=== PATIENT | female | born 1980 | race Caucasian/White ===

== ENCOUNTER 2016-10-28 11:18 | Emergency (ER) | payer OTHER ==
--- NOTE | 2016-10-28 13:21 | REP ---
CHEST, TWO VIEWS: COMPARISON: 11/09/2014. There is no evidence of acute infiltrate. No pleural effusion is seen. The heart is normal in size. The mediastinal silhouette is unremarkable. The visualized osseous structures are intact. IMPRESSION: No acute pulmonary disease. Signed by Sen Granados MD 10/28/2016 01:31 P
--- NOTE | 2016-10-28 13:36 | EDDOCDS ---
Nurse's Notes [facility] Name: Lauren Collins Age: 36 yrs Sex: Female : 1980 Arrival Date: 10/28/2016 Time: 11:18 Bed PR Private MD: NO PRIMARY PHYSICIAN, . Diagnosis: Cough Presentation: 10/28 11:24 Presenting complaint: Patient states: cough and pain when hurts to cough for a month. [facility] Adult Sepsis Screening: The patient does not have new or worsening altered mentation. Patient's respiratory rate is less than 22. Systolic blood pressure is greater than 100. Patient has a qSOFA score of 0- Negative Sepsis Screen. Suicide/Homicide risk assessment- the patient denies having any suicidal and/or homicidal ideations and does not present with any other emotional, behavioral or mental health complaints. 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 Transition of care: patient was not received from another setting of care. 11:24 Acuity: JOVANY Level 4 srm 11:24 Method Of Arrival: Walkin/Carried/Asstd [facility] Triage Assessment: 11:25 General: Appears in no apparent distress, Behavior is appropriate for age, cooperative. srm 11:25 Pain: Pain currently is 5 out of 10 on a pain scale. HIV screening NA for this visit srm Offered previously. 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 none - PMHx: none; - PSHx: ganglion cyst removed from left wrist; Tubal ligation; E-sure insertion; - Social history: Smoking status: Patient uses tobacco products, current every day smoker. No barriers to communication noted, The patient speaks fluent Indonesian, Speaks appropriately for age. - Family history: Not pertinent. - : The pt / caregiver states he / she is not on anticoagulants. Home medication list is obtained from the patient. - Exposure Risk Screening:: None identified. Screenin:32 Screening information is obtained from the patient. Fall risk: No risks identified[facility] Assistance ADL's: requires no assistance with activities of daily living. Abuse/DV Screen: The patient / caregiver reports he/she is: not in a situation that causes fear, pain or injury. Nutritional screening: No deficits noted. Advance Directives: There is no active DNR order. home support is adequate. Assessment: 13:32 General: Appears in no apparent distress, comfortable, Behavior is appropriate for age, cjh cooperative. General: first contact with patient who denies further needs. Reviewed discharge instructions, encouraged and answered questions, declines offers of additional assistance with discharge. Neurological: Level of Consciousness is awake, alert, Oriented to person, place, time. Respiratory: Airway is patent Respiratory effort is even, unlabored, Respiratory pattern is regular, symmetrical. Derm: Skin is pink, warm & dry. Vital Signs: 11:19 BP 157 / 74; Pulse 82; Resp 18; Temp 97.6(O); Pulse Ox 100% on R/A; Weight 88.9 kg (R); elp Height 5 ft. 3 in. (160.02 cm) (R); Pain 5/10; 13:23 BP 125 / 75; Pulse 65; Resp 18; Temp 96.9(O); Pulse Ox 97% on R/A; Pain 6/10; jb5 11:19 Body Mass Index 34.72 (88.90 kg, 160.02 cm) [facility] Vitals: 11:19 Log In Time: October 28, 2016 at 11:18. [facility] ED Course: 11:19 Patient visited by America Hayden PCA. elp 11:19 NO PRIMARY PHYSICIAN, . is Private Physician. elp 11:19 Patient moved to Waiting elp 11:21 Patient visited by America Hayden PCA. elp 11:21 Patient moved to Pre RCE elp 11:25 Triage Initiated srm 11:26 Patient moved to Triage 3 srm 11:50 [facility] dt4 11:50 Boni Moura MD is Attending Physician. dt4 11:50 Patient visited by Clarisse Luu PA-C. dt4 11:58 Patient moved to TR7 srm 12:00 Patient moved to TR2 ml6 12:09 [facility] Payment Agreement was scanned into [employer] and attached to record. mm15 13:02 [facility] is Referral Physician. dt4 13:14 Patient moved to PR1 / 25 pml 13:23 Patient visited by Kimmy Collins PCA. jb5 13:24 Patient visited by Collins, Kimmy, CLINICAL STAFF RN. jb5 13:32 The patient / caregiver is instructed regarding the plan of care and ED course. [facility] 13:32 No IV's were initiated during this patient's visit. No procedures done that require [facility] assistance. Order Results: There are currently no results for this order. Outcome: 13:03 Discharge ordered by Provider. dt4 13:32 Discharge Assessment: Patient awake, alert and oriented x 3. No cognitive and/or [facility] functional deficits noted. Patient verbalized understanding of disposition instructions. patient administered narcotics - no. The following High Risk Discharge criteria are identified: None. Discharged to home ambulatory. Condition: good Condition: stable Condition: improved. Discharge instructions given to patient, Instructed on discharge instructions, follow up and referral plans. medication usage, no driving heavy equipment, no drinking with medication, Demonstrated understanding of Prescriptions given X 2. No special radiology studies were completed. Property :Personal belongings accompany Pt. 13:35 Patient left the ED. [facility] Signatures: Phyllis Roblero, RN CRISELDA [facility] Kimmy Collins, CLINICAL STAFF RN CLINICAL STAFF RN jb5 Moses Feng RN RN ml6 Yelena Taylor RN RN [facility] Bia Covington RN RN [facility] Dimas Beckman mm15 America Hayden, CLINICAL STAFF RN CLINICAL STAFF RN amritap Clarisse Luu PA-C PA-C dt4 MTDD
--- NOTE | 2016-10-28 13:36 | EDDOCDS ---
Physician Documentation [facility] Name: Lauren Collins Age: 36 yrs Sex: Female : 1980 Arrival Date: 10/28/2016 Time: 11:18 Bed Private MD: NO PRIMARY PHYSICIAN, . Disposition: 10/28/16 13:03 Discharged to Home/Self Care. Impression: Cough. - Condition is Stable. - Discharge Instructions: Cough, Adult. - Prescriptions for Iophen C- NR 10-100 mg/5 mL Oral liquid - take 10 milliliter by ORAL route at bedtime As needed; 120 milliliter. benzonatate 200 mg Oral Capsule - take 1 capsule by ORAL route 3 times per day As needed; 30 capsule. - Medication Reconciliation, Local Pharmacy Hours form. - Follow up: Emergency Department; When: As needed; Reason: Worsening of conditions. Follow [facility]: [facility]; When: Call to arrange an appointment; Reason: Recheck today's complaints, Continuance of care, To establish care. - Problem is new. - Symptoms are unchanged. Historical: - Allergies: Erythromycin (Hives); Latex (Rash); Pertussis Vaccines (Unknown); - Home Meds: 1. none - PMHx: none; - PSHx: ganglion cyst removed from left wrist; Tubal ligation; E-sure insertion; - Social history: Smoking status: Patient uses tobacco products, current every day smoker. No barriers to communication noted, The patient speaks fluent Armenian, Speaks appropriately for age. - Family history: Not pertinent. - : The pt / caregiver states he / she is not on anticoagulants. Home medication list is obtained from the patient. - Exposure Risk Screening:: None identified. 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 3 in. (160.02 cm) (R); Pain 5/10; 13:23 BP 125 / 75; Pulse 65; Resp 18; Temp 96.9(O); Pulse Ox 97% on R/A; Pain 6/10; jb5 11:19 Body Mass Index 34.72 (88.90 kg, 160.02 cm) elp MDM: 11:53 Financial registration complete. mm15 11:57 Chest, 2 View (pa\E\lat) Ordered. EDMS 12:09 [facility] Payment Agreement was scanned into [employer] and attached to record. mm15 Signatures: Dispatcher [employer] EDMS Phyllis Roblero RN RN [facility] Bia Covington RN RN [facility] Dimas Beckman mm15 Clarisse Luu PA-C PA-C dt4 The chart was reviewed and I authenticate all verbal orders and agree with the evaluation and treatment provided.Attachments: 12:09 [facility] Payment Agreement mm15 MTDD
--- NOTE | 2016-10-30 14:37 | EDDOCDS ---
Nurse's Notes [facility] Name: Lauren Collins Age: 36 yrs Sex: Female : 1980 Arrival Date: 10/28/2016 Time: 11:18 Bed PR Private MD: NO PRIMARY PHYSICIAN, . Diagnosis: Cough Presentation: 10/28 11:24 Presenting complaint: Patient states: cough and pain when hurts to cough for a month. [facility] Adult Sepsis Screening: The patient does not have new or worsening altered mentation. Patient's respiratory rate is less than 22. Systolic blood pressure is greater than 100. Patient has a qSOFA score of 0- Negative Sepsis Screen. Suicide/Homicide risk assessment- the patient denies having any suicidal and/or homicidal ideations and does not present with any other emotional, behavioral or mental health complaints. 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 Transition of care: patient was not received from another setting of care. 11:24 Acuity: JOVANY Level 4 srm 11:24 Method Of Arrival: Walkin/Carried/Asstd [facility] Triage Assessment: 11:25 General: Appears in no apparent distress, Behavior is appropriate for age, cooperative. srm 11:25 Pain: Pain currently is 5 out of 10 on a pain scale. HIV screening NA for this visit srm Offered previously. 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 none - PMHx: none; - PSHx: ganglion cyst removed from left wrist; Tubal ligation; E-sure insertion; - Social history: Smoking status: Patient uses tobacco products, current every day smoker. No barriers to communication noted, The patient speaks fluent South African, Speaks appropriately for age. - Family history: Not pertinent. - : The pt / caregiver states he / she is not on anticoagulants. Home medication list is obtained from the patient. - Exposure Risk Screening:: None identified. Screenin:32 Screening information is obtained from the patient. Fall risk: No risks identified. [facility] Assistance ADL's: requires no assistance with activities of daily living. Abuse/DV Screen: The patient / caregiver reports he/she is: not in a situation that causes fear, pain or injury. Nutritional screening: No deficits noted. Advance Directives: There is no active DNR order. home support is adequate. Assessment: 13:32 General: Appears in no apparent distress, comfortable, Behavior is appropriate for age, cjh cooperative. General: first contact with patient who denies further needs. Reviewed discharge instructions, encouraged and answered questions, declines offers of additional assistance with discharge. Neurological: Level of Consciousness is awake, alert, Oriented to person, place, time. Respiratory: Airway is patent Respiratory effort is even, unlabored, Respiratory pattern is regular, symmetrical. Derm: Skin is pink, warm & dry. Vital Signs: 11:19 BP 157 / 74; Pulse 82; Resp 18; Temp 97.6(O); Pulse Ox 100% on R/A; Weight 88.9 kg (R); elp Height 5 ft. 3 in. (160.02 cm) (R); Pain 5/10; 13:23 BP 125 / 75; Pulse 65; Resp 18; Temp 96.9(O); Pulse Ox 97% on R/A; Pain 6/10; jb5 11:19 Body Mass Index 34.72 (88.90 kg, 160.02 cm) [facility] Vitals: 11:19 Log In Time: October 28, 2016 at 11:18. [facility] ED Course: 11:19 Patient visited by America Hayden PCA. elp 11:19 NO PRIMARY PHYSICIAN, . is Private Physician. elp 11:19 Patient moved to Waiting elp 11:21 Patient visited by America Hayden PCA. elp 11:21 Patient moved to Pre RCE elp 11:25 Triage Initiated srm 11:26 Patient moved to Triage 3 srm 11:50 Clarisse Luu PA-C [facility]. dt4 11:50 Boni Moura MD is Attending Physician. dt4 11:50 Patient visited by Clarisse Luu PA-C. dt4 11:58 Patient moved to TR7 srm 12:00 Patient moved to TR2 ml6 12:09 [facility] Payment Agreement was scanned into [employer] and attached to record. mm15 13:02 [facility] is Referral Physician. dt4 13:14 Patient moved to PR1 / 25 pml 13:23 Patient visited by Kimmy Collins PCA. jb5 13:24 Patient visited by Collins, Kimmy, MECHANICAL FITTER. jb5 13:32 The patient / caregiver is instructed regarding the plan of care and ED course. [facility] 13:32 No IV's were initiated during this patient's visit. No procedures done that require [facility] assistance. 14:01 Chest, 2 View (pa\E\lat) Returned. EDNE 14:51 T-Sheet-- Draft Copy was scanned into [employer] and attached to record. gb Order Results: Radiology Order: Chest, 2 View (pa\E\lat) Test: Chest, 2 View (pa\E\lat) REASON FOR EXAMINATION: Cough; CHEST, TWO VIEWS:; ; COMPARISON: 11/09/2014.; ; There is no evidence of acute infiltrate.; ; No pleural effusion is seen.; ; The heart is normal in size.; ; The mediastinal silhouette is unremarkable.; ; The visualized osseous structures are intact.; ; IMPRESSION:; ; No acute pulmonary disease.; ; ; Signed by; Sen Granados MD 10/28/2016 01:31 P; Outcome: 13:03 Discharge ordered by Provider. dt4 13:32 Discharge Assessment: Patient awake, alert and oriented x 3. No cognitive and/or [facility] functional deficits noted. Patient verbalized understanding of disposition instructions. patient administered narcotics - no. The following High Risk Discharge criteria are identified: None. Discharged to home ambulatory. Condition: good Condition: stable Condition: improved. Discharge instructions given to patient, Instructed on discharge instructions, follow up and referral plans. medication usage, no driving heavy equipment, no drinking with medication, Demonstrated understanding of Prescriptions given X 2. No special radiology studies were completed. Property :Personal belongings accompany Pt. 13:35 Patient left the ED. [facility] Signatures: [facility] Phyllis Roblero, RN RN [facility] Alex, Diana, Reg Reg gb Kimmy Collins, MECHANICAL FITTER MECHANICAL FITTER jb5 Moses Feng RN RN ml6 Yelena Taylor RN RN pml Hafner, Jane, RN RN [facility] Dimas Beckman mm15 America Hayden, MECHANICAL FITTER MECHANICAL FITTER elp Clarisse Luu, PA-C PA-C dt4 Chart Complete MTDD
--- NOTE | 2016-10-30 14:37 | EDDOCDS ---
Physician Documentation [facility] Name: Lauren Collins Age: 36 yrs Sex: Female : 1980 Arrival Date: 10/28/2016 Time: 11:18 Bed Private MD: NO PRIMARY PHYSICIAN, . Disposition: 10/28/16 13:03 Discharged to Home/Self Care. Impression: Cough. - Condition is Stable. - Discharge Instructions: Cough, Adult. - Prescriptions for Iophen C- NR 10-100 mg/5 mL Oral liquid - take 10 milliliter by ORAL route at bedtime As needed; 120 milliliter. benzonatate 200 mg Oral Capsule - take 1 capsule by ORAL route 3 times per day As needed; 30 capsule. - Medication Reconciliation, Local Pharmacy Hours form. - Follow up: Emergency Department; When: As needed; Reason: Worsening of conditions. Follow [facility]: [facility]; When: Call to arrange an appointment; Reason: Recheck today's complaints, Continuance of care, To establish care. - Problem is new. - Symptoms are unchanged. Historical: - Allergies: Erythromycin (Hives); Latex (Rash); Pertussis Vaccines (Unknown); - Home Meds: 1. none - PMHx: none; - PSHx: ganglion cyst removed from left wrist; Tubal ligation; E-sure insertion; - Social history: Smoking status: Patient uses tobacco products, current every day smoker. No barriers to communication noted, The patient speaks fluent Luxembourger, Speaks appropriately for age. - Family history: Not pertinent. - : The pt / caregiver states he / she is not on anticoagulants. Home medication list is obtained from the patient. - Exposure Risk Screening:: None identified. 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 3 in. (160.02 cm) (R); Pain 5/10; 13:23 BP 125 / 75; Pulse 65; Resp 18; Temp 96.9(O); Pulse Ox 97% on R/A; Pain 6/10; jb5 11:19 Body Mass Index 34.72 (88.90 kg, 160.02 cm) elp MDM: 11:53 Financial registration complete. mm15 11:57 Chest, 2 View (pa\E\lat) Ordered. EDMS 12:09 [facility] Payment Agreement was scanned into [email or web address] and attached to record. mm15 14:51 T-Sheet-- Draft Copy was scanned into MED[employer] and attached to record. gb Signatures: Dispatcher [employer] EDMS Phyllis Robleor, RN CRISELDA [facility] Diana Johnson, Reg Reg gb Bia Covington RN RN [facility] Dimas Beckman mm15 Clarisse Luu PA-C PAVernon dt4 The chart was reviewed and I authenticate all verbal orders and agree with the evaluation and treatment provided.Attachments: 12:09 [facility] Payment Agreement mm15 14:51 T-Sheet-- Draft Copy gb Chart Complete MTDD
--- NOTE | 2016-10-30 14:37 | EDDOCDS ---
Physician Documentation [facility] Name: Lauren Collins Age: 36 yrs Sex: Female : 1980 Arrival Date: 10/28/2016 Time: 11:18 Bed Private MD: NO PRIMARY PHYSICIAN, . Disposition: 10/28/16 13:03 Discharged to Home/Self Care. Impression: Cough. - Condition is Stable. - Discharge Instructions: Cough, Adult. - Prescriptions for Iophen C- NR 10-100 mg/5 mL Oral liquid - take 10 milliliter by ORAL route at bedtime As needed; 120 milliliter. benzonatate 200 mg Oral Capsule - take 1 capsule by ORAL route 3 times per day As needed; 30 capsule. - Medication Reconciliation, Local Pharmacy Hours form. - Follow up: Emergency Department; When: As needed; Reason: Worsening of conditions. Follow [facility]: [facility]; When: Call to arrange an appointment; Reason: Recheck today's complaints, Continuance of care, To establish care. - Problem is new. - Symptoms are unchanged. Historical: - Allergies: Erythromycin (Hives); Latex (Rash); Pertussis Vaccines (Unknown); - Home Meds: 1. none - PMHx: none; - PSHx: ganglion cyst removed from left wrist; Tubal ligation; E-sure insertion; - Social history: Smoking status: Patient uses tobacco products, current every day smoker. No barriers to communication noted, The patient speaks fluent [place], Speaks appropriately for age. - Family history: Not pertinent. - : The pt / caregiver states he / she is not on anticoagulants. Home medication list is obtained from the patient. - Exposure Risk Screening:: None identified. 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 3 in. (160.02 cm) (R); Pain 5/10; 13:23 BP 125 / 75; Pulse 65; Resp 18; Temp 96.9(O); Pulse Ox 97% on R/A; Pain 6/10; jb5 11:19 Body Mass Index 34.72 (88.90 kg, 160.02 cm) elp MDM: 11:53 Financial registration complete. mm15 11:57 Chest, 2 View (pa\E\lat) Ordered. EDMS 12:09 [facility] Payment Agreement was scanned into [employer] and attached to record. mm15 14:51 T-Sheet-- Draft Copy was scanned into MED[employer] and attached to record. gb Signatures: Dispatcher [employer] EDMS Phyllis Roblero, RN CRISELDA [facility] Diana Johnson, Reg Reg gb Bia Covington RN RN [facility] Dimas Beckman mm15 Clarisse Luu PA-C PAVernon dt4 The chart was reviewed and I authenticate all verbal orders and agree with the evaluation and treatment provided.Attachments: 12:09 [facility] Payment Agreement mm15 14:51 T-Sheet-- Draft Copy gb Chart Complete MTDD
== END 2016-10-28 13:35 | disposition home or self-care (01) ==
LOC: M ED 11:18
DX: R05 Cough (principal); Z72.0 Tobacco use; Z88.1 Allergy status to other antibiotic agents; Z91.040 Latex allergy status; Z88.8 Allergy status to other drugs, medicaments and biological substances

== ENCOUNTER 2017-04-23 16:04 | Emergency (ER) | payer OTHER ==
[~2017-04-23] VITALS: Ht 160 cm; Wt 97.8 kg
[2017-04-23 16:05] VITALS: BP 148/77
[2017-04-23] MEDS ORDERED: IBUP80TA PO (16:25)
[2017-04-23] MEDS ORDERED: KEFL500C17 PO (16:43)
== END 2017-04-23 17:02 | disposition home or self-care (01) ==
LOC: M ED 16:04
DX: S61.412A Laceration without foreign body of left hand, initial encounter (principal); X58.XXXA Exposure to other specified factors, initial encounter; Y92.009 Unspecified place in unspecified non-institutional (private) residence as the place of occurrence of the external cause; Y93.89 Activity, other specified; Y99.8 Other external cause status; F17.200 Nicotine dependence, unspecified, uncomplicated; Z88.1 Allergy status to other antibiotic agents; Z88.7 Allergy status to serum and vaccine; Z88.0 Allergy status to penicillin; Z91.040 Latex allergy status

== ENCOUNTER 2017-08-17 10:21 | Emergency (ER) | payer OTHER ==
[~2017-08-17] VITALS: Ht 160 cm; Wt 99.5 kg
[~2017-08-17 10:21] MED LIST: IBUP80TA PO; KEFL500C17 PO
[2017-08-17] MEDS ORDERED: IRON27TA2 PO (10:39)
[2017-08-17] MEDS ORDERED: GARL10004 PO (10:39)
[2017-08-17 12:11] VITALS: BP 159/79
== END 2017-08-17 12:12 | disposition home or self-care (01) ==
LOC: M ED 10:21
DX: N89.8 Other specified noninflammatory disorders of vagina (principal); F41.9 Anxiety disorder, unspecified; F17.210 Nicotine dependence, cigarettes, uncomplicated; Z80.49 Family history of malignant neoplasm of other genital organs; Z87.42 Personal history of other diseases of the female genital tract; Z88.1 Allergy status to other antibiotic agents; Z91.040 Latex allergy status; Z88.0 Allergy status to penicillin; Z88.7 Allergy status to serum and vaccine

== ENCOUNTER → 2017-11-15 | Outpatient (CLI) | payer OTHER | LOC: M RAD 12:50 | DX: R10.2 Pelvic and perineal pain (principal) | CPT/HCPCS: 74018 ==

== ENCOUNTER 2017-11-29 20:03 | Emergency (ER) | payer OTHER ==
[2017-12-01] MEDS ORDERED: METAL LOCK LOOP XX (07:16)
== END 2017-11-29 22:05 | disposition left against medical advice (07) ==
LOC: M ED 22:05
DX: Z53.21 Procedure and treatment not carried out due to patient leaving prior to being seen by health care provider (principal)

== ENCOUNTER → 2018-02-15 | Outpatient (REF) | payer OTHER, MEDICAID ==
[2018-02-15 18:59] LABS: VITAMIN B12 LEVEL 269 PG/ML (247-911)
[2018-02-15 19:08] LABS: BASO % 0.4 % (0.0-1.0); EOS # 0.1 10^3/uL (0.0-0.50); EOS % 2.3 % (0.0-3.0); HEMATOCRIT 35.2 % (36.0-47.0); HEMOGLOBIN 11.4 g/dl (12.0-15.5); IMMATURE GRANULOCYTE % 0.2 % (0-3.0); LYMPH # 1.3 10^3/uL (1.5-4.5); LYMPH % 24.6 % (24.0-44.0); MEAN CORPUSCULAR HEMOGLOBIN 29.8 pg (27.0-33.0); MEAN CORPUSCULAR HGB CONC 32.4 g/dl (32.0-36.5); MEAN CORPUSCULAR VOLUME 91.9 fl (80.0-96.0); MONO # 0.4 10^3/uL (0.0-0.8); MONO % 7.5 % (0.0-5.0); NEUTROPHILS # 3.5 10^3/uL (1.8-7.7); PLATELET COUNT, AUTOMATED 330 10^3/uL (150-450); RED BLOOD COUNT 3.83 10^6/uL (4.00-5.40); WHITE BLOOD COUNT 5.3 10^3/uL (4.0-10.0)
[2018-02-15 19:25] LABS: ALBUMIN 3.9 GM/DL (3.2-5.2); ALBUMIN/GLOBULIN RATIO 1.05 (1.00-1.93); ALKALINE PHOSPHATASE 98 U/L (45-117); ALT/SGPT 37 U/L (12-78); ANION GAP 7 MEQ/L (8-16); AST/SGOT 22 U/L (7-37); BILIRUBIN,TOTAL 0.3 MG/DL (0.2-1.0); BLOOD UREA NITROGEN 13 MG/DL (7-18); CALCIUM LEVEL 8.9 MG/DL (8.5-10.1); CARBON DIOXIDE LEVEL 24 MEQ/L (21-32); CHLORIDE LEVEL 110 MEQ/L (98-107); CREATININE FOR GFR 0.75 MG/DL (0.55-1.30); FERRITIN 23 NG/ML (8-252); FREE T4 0.86 NG/DL (0.76-1.46); GLOMERULAR FILTRATION RATE > 60.0 (>60); GLUCOSE, FASTING 97 MG/DL (70-100); IRON (FE) 41 UG/DL (50-170); POTASSIUM SERUM 4.1 MEQ/L (3.5-5.1); SODIUM LEVEL 141 MEQ/L (136-145); TOTAL PROTEIN 7.6 GM/DL (6.4-8.2)
[2018-02-15 19:45] LABS: ESTIMATED AVERAGE GLUCOSE 108 MG/DL (60-110); HEMOGLOBIN A1c 5.4 %
== END ==
LOC: M LAB REF 18:00
DX: S00.12XA Contusion of left eyelid and periocular area, initial encounter (principal); X58.XXXA Exposure to other specified factors, initial encounter; Y92.89 Other specified places as the place of occurrence of the external cause; R42 Dizziness and giddiness

== ENCOUNTER 2018-02-21 23:43 | Emergency (ER) | payer OTHER ==
[2018-02-22] MEDS ORDERED: MAGIC MOUTHWASH SUSPENSION BTL SSP (02:00)
[2018-02-22] MEDS: ONDANSETRON 4 MG ORAL DISINTEGRATING TAB (Q0162 PER 1MG) PO (02:21)
[2018-02-22] MEDS: MAGIC MOUTHWASH SUSPENSION BTL SSP (02:21)
== END 2018-02-22 02:28 | disposition home or self-care (01) ==
LOC: M ED 23:43
DX: J02.0 Streptococcal pharyngitis (principal); R11.2 Nausea with vomiting, unspecified; J45.909 Unspecified asthma, uncomplicated; G43.909 Migraine, unspecified, not intractable, without status migrainosus; F41.9 Anxiety disorder, unspecified; F17.200 Nicotine dependence, unspecified, uncomplicated; Z88.0 Allergy status to penicillin; Z88.1 Allergy status to other antibiotic agents; Z91.040 Latex allergy status
CPT/HCPCS: Q0162

== ENCOUNTER → 2018-02-23 | Outpatient (CLI) | payer OTHER | LOC: M RAD 17:57 | DX: S00.12XA Contusion of left eyelid and periocular area, initial encounter (principal); R42 Dizziness and giddiness; X58.XXXA Exposure to other specified factors, initial encounter; Y92.89 Other specified places as the place of occurrence of the external cause; Y99.9 Unspecified external cause status; Y93.9 Activity, unspecified | CPT/HCPCS: 70450 ==

== ENCOUNTER → 2018-04-17 | Outpatient (CLI) | payer OTHER | LOC: M RAD 21:00 | DX: M25.572 Pain in left ankle and joints of left foot (principal) | CPT/HCPCS: 73610 ==

== ENCOUNTER → 2019-05-22 | Outpatient (REF) | payer OTHER ==
[~2019-05-22] MED LIST changes: +AUGM875T28 PO; +CEFD1CAP8 PO; +GARL10004 PO; +IBUP-1022 PO; +IRON27TA2 PO; +MAGICMW SSP; +OXYC1TAB23 PO; +ZOFR4TAB14 PO
== END ==
LOC: M LAB REF 09:57
PROVIDERS: ATTEND Nurse Practitioner Family
DX: N39.0 Urinary tract infection, site not specified (principal)

== ENCOUNTER → 2019-08-03 | Outpatient (CLI) | payer OTHER ==
--- NOTE | 2019-08-03 10:46 | REP ---
REASON: Cough. COMPARISON: 10/28/2016 A minimal opacity is seen in the left lower lobe representing a change from the prior exam. The pleural angles are sharp. The heart is not enlarged. The lung plasencia are otherwise clear. The osseous structures are stable and intact. IMPRESSION: Possible early developed left lower lobe pneumonia. Electronically Signed by Abundio Roque DO 08/03/2019 10:55 A
== END ==
LOC: M LRY 10:17
PROVIDERS: ATTEND Physician Assistant
DX: R05 Cough (principal)

== ENCOUNTER 2022-01-03 02:00 | Emergency (ER) | payer OTHER ==
[~2022-01-03] VITALS: Ht 160 cm; Wt 92.7 kg
[~2022-01-03 02:00] MED LIST changes: -CEFD1CAP8 PO; +CEFD300C41 PO
[2022-01-03] MEDS ORDERED: PRED20TA PO (02:05)
[2022-01-03] MEDS ORDERED: MUCI120T PO (02:05)
[2022-01-03] MEDS ORDERED: METAL LOCK LOOP XX ONE (03:22)
[2022-01-03] MEDS ORDERED: NS 1,000 ML IV ONE (03:25)
[2022-01-03 03:47] LABS: BASO % 0.2 % (0.0-1.0); EOS # 0.1 10^3/uL (0.0-0.5); EOS % 0.6 % (0.0-3.0); HEMATOCRIT 36.8 % (36.0-47.0); HEMOGLOBIN 12.3 g/dl (12.0-15.5); LYMPH # 2.1 10^3/uL (1.5-5.0); LYMPH % 17.4 % (24.0-44.0); MEAN CORPUSCULAR HEMOGLOBIN 31.1 pg (27.0-33.0); MEAN CORPUSCULAR HGB CONC 33.4 g/dl (32.0-36.5); MEAN CORPUSCULAR VOLUME 93.2 fl (80.0-96.0); MONO # 0.8 10^3/uL (0.0-0.8); MONO % 6.4 % (2.0-8.0); NEUTROPHILS % 75.1 % (36.0-66.0); PLATELET COUNT, AUTOMATED 297 10^3/uL (150-450); RED BLOOD COUNT 3.95 10^6/uL (4.00-5.40); WHITE BLOOD COUNT 11.9 10^3/uL (4.0-10.0)
[2022-01-03 04:33] LABS: ALT/SGPT 118 U/L (12-78); BILIRUBIN,DIRECT < 0.1 MG/DL (0.0-0.2); BILIRUBIN,TOTAL 0.2 MG/DL (0.2-1.0); LIPASE 204 U/L (73-393); TOTAL PROTEIN 7.2 GM/DL (6.4-8.2)
[2022-01-03] MEDS ORDERED: KETOROLAC 30 MG/ML 1ML VIAL IV ONE (04:45)
[2022-01-03] MEDS ORDERED: ISOVUE-370 76% 100ML VIAL As Ordered ONE (04:57)
[2022-01-03 06:30] VITALS: BP 133/77
[2022-01-03] MEDS ORDERED: NAPR-837 PO (06:35)
== END 2022-01-03 06:50 | disposition home or self-care (01) ==
LOC: M ED 02:00
DX: S30.1XXA Contusion of abdominal wall, initial encounter (principal); X50.0XXA Overexertion from strenuous movement or load, initial encounter; Y92.9 Unspecified place or not applicable; Y93.9 Activity, unspecified; Y99.9 Unspecified external cause status; R09.81 Nasal congestion; R05.9 Cough, unspecified; K57.30 Diverticulosis of large intestine without perforation or abscess without bleeding; Z90.710 Acquired absence of both cervix and uterus; F17.200 Nicotine dependence, unspecified, uncomplicated; Z88.0 Allergy status to penicillin; Z88.8 Allergy status to other drugs, medicaments and biological substances; Z91.040 Latex allergy status; Z79.899 Other long term (current) drug therapy
CPT/HCPCS: 74177; 80047; 80076; 83690; 85025; 93041; 96361; 96374; 99285; J1885; Q9967

== ENCOUNTER 2025-10-18 19:48 | Emergency (ER) | payer OTHER ==
[~2025-10-18] VITALS: Ht 160 cm; Wt 81.8 kg
[~2025-10-18 19:48] MED LIST changes: +CEFD1CAP9 PO; -CEFD300C41 PO; -IBUP-1022 PO; +IBUP600T42 PO; +MUCI120T PO; +NAPR-837 PO; +PRED20TA PO
[2025-10-18] MEDS: KETOROLAC 60 MG/2 ML VIAL IM ONE (22:15)
[2025-10-18] MEDS ORDERED: KETO-204 PO (23:10)
[2025-10-18 23:26] VITALS: BP 154/76; TEMP 97.1; O2SAT 98
== END 2025-10-18 23:29 | disposition home or self-care (01) ==
LOC: M ED 21:16
DX: S99.921A Unspecified injury of right foot, initial encounter (principal); M25.774 Osteophyte, right foot; Y92.9 Unspecified place or not applicable; Y93.9 Activity, unspecified; Y99.9 Unspecified external cause status; J45.909 Unspecified asthma, uncomplicated; F17.210 Nicotine dependence, cigarettes, uncomplicated; Z88.0 Allergy status to penicillin; Z88.1 Allergy status to other antibiotic agents; Z88.7 Allergy status to serum and vaccine; Z91.040 Latex allergy status; Z79.2 Long term (current) use of antibiotics; Z79.52 Long term (current) use of systemic steroids; Z79.899 Other long term (current) drug therapy
CPT/HCPCS: 73630; 96372; 99283; J1885